=== PATIENT | female | born 1990 | race Caucasian/White ===

== ENCOUNTER 2016-11-24 18:17 | Emergency (ER) | payer BC ==
--- NOTE | 2016-11-24 19:31 | EDM.PDOC ---
ED HPI GENERAL MEDICAL PROBLEM - General Chief Complaint: Gastrointestinal Problem Stated Complaint: FEELS LIKE VOMITING AFTER EATING Time Seen by Provider: 11/24/16 18:54 Source of Information: Reports: Patient History Limitations: Reports: No Limitations - History of Present Illness INITIAL COMMENTS - FREE TEXT/NARRATIVE: Patient is a 26-year-old female presents ED complaining of mild pain to the left upper quadrant/epigastric region and nausea. Patient states this past Sunday she became nauseated and vomited 1 that evening. Ever since then with eating she's noticed some nausea. Thus her appetite has somewhat decreased. She still states she's been eating and also drinking fluids. As mentioned above pain is mild in nature currently rated a 1 out of 10. Described as a sharp sensation. She's had 2 bowel movements recently described as being soft, formed , with some straining present. There's been no blood present. She's had no more vomiting. States she has no history of constipation. Denies any pain with urination, fever/chills, shortness of breath, chest pain, dysuria, acid reflux, or any additional complaints. She has not eaten any bad or questionable food or traveled out of country. She's had no abnormal vaginal discharge. She denies being sexually active and having any chance of being . States her menstrual cycle just completed this past Sunday. Nothing abnormal present. Onset Date: 11/19/16 Duration: Intermittent, Waxing/Waning Location: Reports: Abdomen (LUQ) Quality: Reports: Sharp Severity: Mild Improves with: Reports: None Worsens with: Reports: Other (palpation, walking) Context: Denies: Activity, Exercise, Sick Contact, Trauma Associated Symptoms: Reports: Nausea/Vomiting (vomited x 1 this past Sunday) Treatments [employer]: Reports: Other (see below) (none stated) Left lower abdomen Pain Score (Numeric/FACES): 2 - Related Data Allergies Allergy/AdvReac Type Severity Reaction Status Date / Time No Known Allergies Allergy Verified 11/24/16 18:35 Home Meds: Home Meds Nitrofurantoin Monohyd/M-Cryst [Macrobid 100 mg Capsule] 100 mg PO BID #10 capsule 11/24/16 [Rx] Past Medical History - Past Health History Medical/Surgical History: Denies Medical/Surgical History Social & Family History - Family History Family Medical History: Noncontributory - Tobacco Use Smoking Status *Q: Never Smoker Second Hand Smoke Exposure: No - Caffeine Use Caffeine Use: Reports: Coffee - Recreational Drug Use Recreational Drug Use: No ED ROS GENERAL - Review of Systems Review Of Systems: See Below Constitutional: Reports: Decreased Appetite. Denies: Fever, Chills, Malaise, Weakness, Fatigue HEENT: Reports: No Symptoms Respiratory: Reports: No Symptoms Cardiovascular: Reports: No Symptoms GI/Abdominal: Reports: Abdominal Pain, Decreased Appetite. Denies: Anorexia, Black Stool, Bloody Stool, Constipation, Diarrhea, Difficulty Swallowing, Distension, Flatus, Hematemesis, Hematochezia, Melena, Mucous in Stool, Nausea, Vomiting : Denies: Dysuria Musculoskeletal: Reports: No Symptoms Neurological: Reports: No Symptoms ED EXAM, GI/ABD - Physical Exam Exam: See Below Exam Limited By: No Limitations General Appearance: Alert, WD/WN, No Apparent Distress Ears: Hearing Grossly Normal Nose: Normal Inspection Throat/Mouth: Normal Voice, No Airway Compromise Neck: Normal Inspection, Supple Respiratory/Chest: No Respiratory Distress, Lungs Clear, Normal Breath Sounds, No Accessory Muscle Use, Chest Non-Tender Cardiovascular: Normal Peripheral Pulses, Regular Rate, Rhythm, No Murmur GI/Abdominal Exam: Normal Bowel Sounds, Soft, No Organomegaly, No Distention, Tender (LUQ) Back Exam: Normal Inspection. No: CVA Tenderness (L), CVA Tenderness (R) Extremities: Normal Inspection Neurological: Alert, Oriented, CN II-XII Intact, No Motor/Sensory Deficits Psychiatric: Normal Affect, Normal Mood Skin Exam: Warm, Dry, Intact, Normal Color Course - Vital Signs Last Recorded V/S: Last Vital Signs Temp 97.7 F 11/24/16 18:32 Pulse 93 11/24/16 18:32 Resp 18 11/24/16 18:32 BP 145/91 H 11/24/16 18:32 Pulse Ox 98 11/24/16 18:32 - Orders/Labs/Meds Orders: Active Orders 24 hr Category Date Time Status Abdomen 2V AP Flat Upright [CR] Stat Exams 11/24/16 19:30 Ordered Abdomen Pelvis w Cont [CT] Stat Exams 11/24/16 21:19 Stop Req CULTURE URINE [RM] Stat Lab 11/24/16 19:57 Received Labs: Laboratory Tests 0711/24/16 11/24/16 Range/Units 19:48 19:48 19:57 WBC 11.18 H (3.98-10.04) K/mm3 RBC 4.60 (3.98-5.22) M/mm3 Hgb 13.0 (11.2-15.7) gm/L Hct 40.0 (34.1-44.9) % MCV 87.0 (79.4-94.8) fl MCH 28.3 (25.6-32.2) pg MCHC 32.5 (32.2-35.5) g/dl RDW Std Deviation 41.9 (36.4-46.3) fL Plt Count 270 (182-369) K/mm3 MPV 10.8 (9.4-12.3) fl Neut % (Auto) 68.6 (34.0-71.1) % Lymph % (Auto) 22.4 (19.3-51.7) % [place] % (Auto) 7.0 (4.7-12.5) % Eos % (Auto) 1.6 (0.7-5.8) Baso % (Auto) 0.3 (0.1-1.2) % Neut # (Auto) 7.68 H (1.56-6.13) K/mm3 Lymph # (Auto) 2.50 (1.18-3.74) K/mm3 [place] # (Auto) 0.78 H (0.24-0.36) K/mm3 Eos # (Auto) 0.18 (0.04-0.36) K/mm3 Baso # (Auto) 0.03 (0.01-0.08) K/mm3 Sodium 143 (136-145) mEq/L Potassium 3.8 (3.5-5.1) mEq/L Chloride 106 (98-107) mEq/L Carbon Dioxide 27 (21-32) mEq/L Anion Gap 13.8 (5-15) BUN 10 (7-18) mg/dL Creatinine 1.0 (0.55-1.02) mg/dL Est Cr Clr Drug Dosing TNP Estimated GFR (MDRD) > 60 (>60) mL/min BUN/Creatinine Ratio 10.0 L (14-18) Glucose 98 (74-106) mg/dL Calcium 9.5 (8.5-10.1) mg/dL Total Bilirubin 0.3 (0.2-1.0) mg/dL AST 12 L (15-37) U/L ALT 15 (14-59) U/L Alkaline Phosphatase 77 (46-116) U/L C-Reactive Protein 1.3 H* (<1.0) mg/dL Total Protein 8.4 H (6.4-8.2) g/dl Albumin 3.9 (3.4-5.0) g/dl Globulin 4.5 gm/dL Albumin/Globulin Ratio 0.9 L (1-2) Lipase 128 (73-393) U/L HCG, Qual (NEGATIVE) Urine Color Light yellow (Yellow) Urine Appearance Clear (Clear) Urine pH 6.0 (5.0-8.0) Ur Specific [place] 1.010 (1.005-1.030) Urine Protein Negative (Negative) Urine Glucose (UA) Negative (Negative) Urine Ketones Negative (Negative) Urine Occult Blood Trace-lysed H (Negative) Urine Nitrite Negative (Negative) Urine Bilirubin Negative (Negative) Urine Urobilinogen 0.2 (0.2-1.0) Ur Leukocyte Esterase 1+ H (Negative) Urine RBC 0-5 (0-5) /hpf Urine WBC 5-10 H (0-5) /hpf Ur Epithelial Cells 0-5 (0-5) /hpf Urine Bacteria Few (FEW) /hpf Urine Mucus Not seen (FEW) /hpf 11/24/16 Range/Units 19:58 WBC (3.98-10.04) K/mm3 RBC (3.98-5.22) M/mm3 Hgb (11.2-15.7) gm/L Hct (34.1-44.9) % MCV (79.4-94.8) fl MCH (25.6-32.2) pg MCHC (32.2-35.5) g/dl RDW Std Deviation (36.4-46.3) fL Plt Count (182-369) K/mm3 MPV (9.4-12.3) fl Neut % (Auto) (34.0-71.1) % Lymph % (Auto) (19.3-51.7) % [place] % (Auto) (4.7-12.5) % Eos % (Auto) (0.7-5.8) Baso % (Auto) (0.1-1.2) % Neut # (Auto) (1.56-6.13) K/mm3 Lymph # (Auto) (1.18-3.74) K/mm3 [place] # (Auto) (0.24-0.36) K/mm3 Eos # (Auto) (0.04-0.36) K/mm3 Baso # (Auto) (0.01-0.08) K/mm3 Sodium (136-145) mEq/L Potassium (3.5-5.1) mEq/L Chloride (98-107) mEq/L Carbon Dioxide (21-32) mEq/L Anion Gap (5-15) BUN (7-18) mg/dL Creatinine (0.55-1.02) mg/dL Est Cr Clr Drug Dosing Estimated GFR (MDRD) (>60) mL/min BUN/Creatinine Ratio (14-18) Glucose (74-106) mg/dL Calcium (8.5-10.1) mg/dL Total Bilirubin (0.2-1.0) mg/dL AST (15-37) U/L ALT (14-59) U/L Alkaline Phosphatase (46-116) U/L C-Reactive Protein (<1.0) mg/dL Total Protein (6.4-8.2) g/dl Albumin (3.4-5.0) g/dl Globulin gm/dL Albumin/Globulin Ratio (1-2) Lipase (73-393) U/L HCG, Qual Negative (NEGATIVE) Urine Color (Yellow) Urine Appearance (Clear) Urine pH (5.0-8.0) Ur Specific [place] (1.005-1.030) Urine Protein (Negative) Urine Glucose (UA) (Negative) Urine Ketones (Negative) Urine Occult Blood (Negative) Urine Nitrite (Negative) Urine Bilirubin (Negative) Urine Urobilinogen (0.2-1.0) Ur Leukocyte Esterase (Negative) Urine RBC (0-5) /hpf Urine WBC (0-5) /hpf Ur Epithelial Cells (0-5) /hpf Urine Bacteria (FEW) /hpf Urine Mucus (FEW) /hpf - Re-Assessments/Exams Free Text/Narrative Re-Assessment/Exam: CBC, c14, crp, HCG, lipase, and ua w/micro. Labs reviewed: White blood cell count 11.18, hemoglobin 13.0, no neutrophilia, sodium 143, potassium 3.8, creatinine 1.0, glucose 98, CRP mildly elevated 1.3, lipase 128, hCG negative, UA occult blood, leukocyte esterase 1+, urine wbc's 5- 10, urine nitrates negative. Patient has pain to the epigastric and left upper quadrant. She has no UTI-like symptoms. Findings on UA did revealed concerns for urinary tract infection with urine wbc's 5-10 with positive leukocyte Estrace. Urine culture has been obtained. Will discharge patient home with instructions a prescription for Macrobid. Offered to obtain a CT of the abdomen and pelvis to better understand the etiology of upper quadrant abdominal discomfort. She has refused. Will go ahead with this treatment regimen with close follow-up. Departure - Departure Time of Disposition: 21:39 Disposition: Home, Self-Care 01 Condition: Good Clinical Impression: UTI, Urinary tract infectious disease - Discharge Information Prescriptions: Nitrofurantoin Monohyd/M-Cryst [Macrobid 100 mg Capsule] 100 mg PO BID #10 capsule Instructions: Urinary Tract Infection, Adult Referrals: PCP,None [Primary Care Provider] - Forms: ED Department Discharge Additional Instructions: UA did reveal concerns for urinary tract infection. Urine culture has been obtained. No clear etiology to why your having pain to the left upper quadrant or epigastric region. You may have associated gastritis with a recent asymptomatic urinary tract infection. Thus will have you start taking Prilosec one tab half-hour prior to eat and every morning for the next 2 weeks. In addition will have you take Macrobid one tablet twice a day for 5 days. Followup with PCP at the conclusion of treatment to ensure resolution. Return to the ED for any new or worsening symptoms. - My Orders Last 24 Hours: My Active Orders 11/24/16 19:30 Abdomen 2V AP Flat Upright [CR] Stat 11/24/16 19:57 CULTURE URINE [RM] Stat 11/24/16 21:19 Abdomen Pelvis w Cont [CT] Stat - Assessment/Plan Last 24 Hours: My Active Orders 11/24/16 19:30 Abdomen 2V AP Flat Upright [CR] Stat 11/24/16 19:57 CULTURE URINE [RM] Stat 11/24/16 21:19 Abdomen Pelvis w Cont [CT] Stat
[2016-11-25 00:16] VITALS: BP 145/91
--- NOTE | 2016-11-26 08:32 | CR ---
Abdomen: Supine and upright views of the abdomen were obtained. Comparison: No previous study. Bowel gas pattern appears normal. No abnormal calcifications or soft tissue abnormality is seen. No free air is identified. Bony structures are within normal limits for the patient's age. Incidental note of partial transitional segment at the lumbosacral junction on the left side with pseudoarticulation of an enlarged L5 transverse process to the sacrum. Impression: 1. Partial transitional segment at the lumbosacral junction as noted above which is a normal variant. 2. Two-view abdominal x-ray is otherwise unremarkable. Diagnostic code #2
== END 2016-11-24 21:50 | disposition home or self-care (01) ==
LOC: JD.ED 18:17
DX: N39.0 Urinary tract infection, site not specified (principal)
CPT/HCPCS: 36415; 74020; 74020-26; 80053; 81001; 83690; 84703; 85025; 86140; 87086; 99284